=== PATIENT | female | born 1950 | race Caucasian/White ===

== ENCOUNTER 2016-12-15 08:33 | Day surgery (SDC) | payer MEDICARE, BC ==
[2016-12-15] MEDS: Sodium Tetradecyl Sulfate 1% 20 MG/2 ML SDV ONE ×2 (08:21→10:21)
[2016-12-15] MEDS: Lidocaine 1% 20 ML MDV ONE ×2 (08:22→10:00)
[~2016-12-15 08:33] MED LIST: Lidocaine 1% 20 ML MDV ONE; Midazolam 1 MG/ML 2 ML SDV ONE; Propofol 200 MG/20 ML SDV ONE; Sodium Chloride 0.9% 10 ML ONE; fentaNYL 100 MCG/2 ML SDV ONE
[2016-12-15] MEDS ORDERED: Sodium Chloride 0.9% 1,000 ML IV SCH (09:15)
[2016-12-15] MEDS ORDERED: Lidocaine 1% w/EPINEPHrine 50 ML, Sodium Bicarbonate 5 MEQ in Sodium Chloride 0.9% 950 ML INJECT SCH ×6 (09:45)
[2016-12-15] MEDS ORDERED: Propofol 200 MG/20 ML SDV ONE (10:18)
[2016-12-15 11:39] VITALS: BP 132/66
--- NOTE | 2016-12-15 11:43 | OR ---
DATE OF PROCEDURE: 12/15/2016 PROCEDURE: 1. Radiofrequency ablation of left lesser saphenous vein. 2. Radiofrequency ablation of right lesser saphenous vein. 3. Sclerotherapy, left leg, multiple. 4. Sclerotherapy, right leg, multiple. 5. Compression wraps, left leg ([id number]). 6. Compression wraps, right leg ([id number]). COMPLICATIONS: None. SECOND LANGUAGE TUTOR: None. ANESTHESIA: Mac/local. PREOPERATIVE DIAGNOSIS: Venous/varicose vein insufficiency with inflammation and pain. POSTOPERATIVE DIAGNOSIS: Venous/varicose vein insufficiency with inflammation and pain. RISKS: Risks, benefits, alternatives, limitations including, but not limited to infection, bleeding, and perforation were explained to the patient, and she wished to proceed. PROCEDURE IN DETAIL: The patient was placed in prone position. The right LSV was addressed first. This was accessed via 35,000th wire, then exchanged to a 7-Bangladeshi sheath all via a 21-gauge needle. The probe was advanced to greater than 3 cm from the deep junction. This was injected with tumescent fluid around this and verified a second and third time. Direct even pressure was deployed x2 proximally and x1 in all other segments. The sheath and device removed and direct pressure was held for 10 minutes. Dermabond was applied. The same procedure was performed in the left leg, same manner, same fashion, same technique in the same sequence using the same equipment. Sclerotherapy was then performed in left and right legs using 0.33% sodium tetradecyl. This was drawn back to ensure intravascular injection only. No more than 2 mL was injected in one location. Seven on the right, 8 on the left with length of 1 to 6 cm. Compression wrapping using CoFlex 2 system in two layers was performed in standard fashion. The patient tolerated the procedure well. Vance Gastelum MD /[id number]
== END 2016-12-15 12:05 | disposition home or self-care (01) ==
LOC: JP.SDS 08:33
PROVIDERS: ATTEND Surgery
DX: I87.2 Venous insufficiency (chronic) (peripheral) (principal); I83.11 Varicose veins of right lower extremity with inflammation; I83.12 Varicose veins of left lower extremity with inflammation; I83.813 Varicose veins of bilateral lower extremities with pain; I10 Essential (primary) hypertension
CPT/HCPCS: 29581; 36471; 36475; C1888; J1642; J2250; J2704; J3010; J7040; J7050

== ENCOUNTER 2016-12-18 10:19 | Emergency (ER) | payer MEDICARE, BC ==
[2016-12-18] MEDS ORDERED: Albuterol/Ipratropium 3.0-0.5 MG/3 ML Neb Soln NEB ONE (11:39)
[2016-12-18] MEDS ORDERED: Sodium Chloride 0.9% 1,000 ML IV SCH (12:15)
[2016-12-18] MEDS ORDERED: Iopamidol 755 Mg/ML 100 ML Bottle IV STA (12:21)
[2016-12-18] MEDS ORDERED: Sodium Chloride 0.9% 100 ML IV STA (12:21)
[2016-12-18 13:14] VITALS: BP 156/83
--- NOTE | 2016-12-18 14:33 | EDM.PDOC ---
ED HPI GENERAL MEDICAL PROBLEM - General Chief Complaint: Respiratory Problem Stated Complaint: SOB Time Seen by Provider: 12/18/16 10:54 Source of Information: Reports: Patient History Limitations: Reports: No Limitations - History of Present Illness INITIAL COMMENTS - FREE TEXT/NARRATIVE: History of present illness: [66-year-old female enters in [place] is here with a productive cough of yellow sputum and shortness of breath. She's actually been not well since last January when she had pneumonia. She's improved but she's never really returned to baseline and now she feels she is getting worse again. She's worried that she has "valley fever" from living in [place]. This is coccidiomycosis. She did have a long CT which showed some granulomas. This was done in October. She's had no overt fevers chills although last night subjectively she felt like she was chilling and needed extra blankets. She's never been on any inhalers before told that she's had COPD or asthma. Is a nonsmoker no history of blood clots no history of coronary artery disease.] Review of systems: As per history of present illness and below otherwise all systems reviewed and negative. Past medical history: As per history of present illness and as reviewed below otherwise noncontributory. Surgical history: As per history of present illness and as reviewed below otherwise noncontributory. Social history: No reported history of drug or alcohol abuse. Family history: As per history of present illness and as reviewed below otherwise noncontributory. Physical exam: HEENT: Atraumatic, normocephalic, pupils reactive, negative for conjunctival pallor or scleral icterus, mucous membranes moist, throat clear, neck supple, nontender, trachea midline. Lungs: Show diminished breath sounds throughout with wheezing which cleared with a DuoNeb treatment Heart: S1S2, regular, negative for clicks, rubs, or JVD. Abdomen: Soft, nondistended, nontender. Negative for masses or hepatosplenomegaly. Negative for costovertebral tenderness. Pelvis: Stable nontender. Genitourinary: Deferred. Rectal: Deferred. Extremities: Atraumatic, negative for cords or calf pain. Neurovascular unremarkable. Neuro: Awake, alert, oriented. Cranial nerves II through XII unremarkable. Cerebellum unremarkable. Motor and sensory unremarkable throughout. Exam nonfocal. Diagnostics: [Her d-dimer was elevated and so we did do a chest CT which ruled out pulmonary embolus but the other pulmonary findings seen on the prior CT were seen once again and are unchanged. Her white count is normal but other inflammatory markers such as sedimentation rate and CRP are elevated. I asked the lab to send serum for checking for coccidiomycosis and to my understanding is that this was done. I presume this is a send out to [facility]. Chest x-ray did not show any overt infiltrates.] Therapeutics: [She received a DuoNeb therapy and felt much better after this] Impression: [Asthmatic bronchitis rule out coccidiomycosis] Plan: [I'm going to provide her with Levaquin 750 mg 1 by mouth daily for [address] her on an albuterol inhaler 2-3 puffs every 4 hours when necessary cough or shortness of breath. I've urged her to follow-up with her primary care doctor who can follow-up on the coccidiomycosis testing to should have been sent to [facility]. She has CT findings as well that we'll need follow-up on as per Fleischner criteria. If albuterol inhaler is not working well for her she may need to be on some long-acting beta agonists or perhaps steroid inhalers but that this can be left up to her primary.] Definitive disposition and diagnosis as appropriate pending reevaluation and review of above. Headache Pain Score (Numeric/FACES): 5 - Related Data Allergies Allergy/AdvReac Type Severity Reaction Status Date / Time No Known Allergies Allergy Verified 12/18/16 10:36 Home Meds: Home Meds Propranolol [Inderal] 40 mg PO DAILY 03/20/15 [History] Past Medical History Other Cardiovascular History: Essential Tremors - takes beta farzana for this. Respiratory History: Reports: SOB Other Respiratory History: coughtin [employer] History: Reports: - Infectious Disease History Infectious Disease History: Reports: Chicken Pox, Measles, Mumps - Past Surgical History GI Surgical History: Reports: Colonoscopy Social & Family History - Family History Family Medical History: Noncontributory - Tobacco Use Smoking Status *Q: Never Smoker Second Hand Smoke Exposure: No - Caffeine Use Caffeine Use: Reports: Tea - Alcohol Use Days Per Week of Alcohol Use: 0 - Recreational Drug Use Recreational Drug Use: No ED ROS GENERAL - Review of Systems Review Of Systems: ROS reveals no pertinent complaints other than HPI. ED EXAM, GENERAL - Physical Exam Exam: See Below Course - Vital Signs Last Recorded V/S: Last Vital Signs Temp 37.1 C 12/18/16 10:33 Pulse 85 12/18/16 13:13 Resp 16 12/18/16 13:13 BP 156/83 H 12/18/16 13:13 Pulse Ox 95 12/18/16 13:13 - Orders/Labs/Meds Orders: Active Orders 24 hr Category Date Time Status EKG Documentation Completion [RC] ASDIRECTED Care 12/18/16 11:04 Active RT Aerosol Therapy [RC] ASDIRECTED Care 12/18/16 11:40 Active Ang Chest [CT] Stat Exams 12/18/16 12:10 Taken Chest 2V [CR] Stat Exams 12/18/16 11:03 Taken COCCIDIODES ANTIBODY BY ID [REF] Routine Lab 12/18/16 11:26 Received CULTURE RESPIRATORY + SMEAR [RM] Stat Lab 12/18/16 11:55 Results Sodium Chloride 0.9% [Normal Saline] 1,000 ml Med 12/18/16 12:15 Active IV ASDIRECTED EKG 12 Lead [EK] Stat Ther 12/18/16 11:03 Ordered Medication Orders Sodium Chloride (Normal Saline) 1,000 mls @ 250 mls/hr IV ASDIRECTED LUPILLO Last Admin: 12/18/16 12:59 Dose: 250 mls/hr Labs: Laboratory Tests 12/18/16 12/18/16 12/18/16 Range/Units 11:25 11:25 11:25 WBC 7.5 (4.5-11.0) K/uL RBC 4.60 (3.30-5.50) M/uL Hgb 13.3 (12.0-15.0) g/dL Hct 40.7 (36.0-48.0) % MCV 89 (80-98) fL MCH 29 (27-31) pg MCHC 33 (32-36) % Plt Count 275 (150-400) K/uL Neut % (Auto) 52 (36-66) % Lymph % (Auto) 20 L (24-44) % [place] % (Auto) 18 H (2-6) % Eos % (Auto) 7 H (2-4) % Baso % (Auto) 3 H (0-1) % ESR 43 H (0-25) mm/hr D-Dimer, Quantitative 513 H (0.0-400.0) ng/mL ABG Hemoglobin 13.6 (12.0-16.0) g/dL ABG Oxyhemoglobin 40.4 % ABG Carboxyhemoglobin 1.4 (0.0-1.6) % ABG Methemoglobin 0.6 % VBG pH 7.407 (7.350-7.450) VBG pCO2 45.8 mm/Hg VBG pO2 25.3 mm/Hg VBG HCO3 28.2 mmol/L VBG Total CO2 25.4 mmol/L VBG O2 Saturation 41.2 VBG O2 Content 7.7 %vol VBG Base Excess 3.4 mm/L O2 Delivery Device Room air Sodium (140-148) mmol/L Potassium (3.6-5.2) mmol/L Chloride (100-108) mmol/L Carbon Dioxide (21-32) mmol/L Anion Gap (5.0-14.0) mmol/L BUN (7-18) mg/dL Creatinine (0.6-1.0) mg/dL Est Cr Clr Drug Dosing mL/min Estimated GFR (MDRD) (>60) Glucose (74-106) mg/dL Lactic Acid (0.4-2.0) mmol/L Calcium (8.5-10.1) mg/dL Total Bilirubin (0.2-1.0) mg/dL AST (15-37) U/L ALT (12-78) U/L Alkaline Phosphatase (46-116) U/L Troponin I (0.000-0.056) ng/mL C-Reactive Protein (0.0-0.3) mg/dL [id number] Pept (5-125) pg/mL Total Protein (6.4-8.2) g/dL Albumin (3.4-5.0) g/dL Globulin (2.3-3.5) g/dL Albumin/Globulin Ratio (1.2-2.2) 12/18/16 12/18/16 Range/Units 11:25 11:25 WBC (4.5-11.0) K/uL RBC (3.30-5.50) M/uL Hgb (12.0-15.0) g/dL Hct (36.0-48.0) % MCV (80-98) fL MCH (27-31) pg MCHC (32-36) % Plt Count (150-400) K/uL Neut % (Auto) (36-66) % Lymph % (Auto) (24-44) % [place]ima % (Auto) (2-6) % Eos % (Auto) (2-4) % Baso % (Auto) (0-1) % ESR (0-25) mm/hr D-Dimer, Quantitative (0.0-400.0) ng/mL ABG Hemoglobin (12.0-16.0) g/dL ABG Oxyhemoglobin % ABG Carboxyhemoglobin (0.0-1.6) % ABG Methemoglobin % VBG pH (7.350-7.450) VBG pCO2 mm/Hg VBG pO2 mm/Hg VBG HCO3 mmol/L VBG Total CO2 mmol/L VBG O2 Saturation VBG O2 Content %vol VBG Base Excess mm/L O2 Delivery Device Sodium 143 (140-148) mmol/L Potassium 4.2 (3.6-5.2) mmol/L Chloride 106 (100-108) mmol/L Carbon Dioxide 30 (21-32) mmol/L Anion Gap 7.4 (5.0-14.0) mmol/L BUN 9 (7-18) mg/dL Creatinine 0.8 (0.6-1.0) mg/dL Est Cr Clr Drug Dosing 58.93 mL/min Estimated GFR (MDRD) > 60 (>60) Glucose 100 (74-106) mg/dL Lactic Acid 0.9 (0.4-2.0) mmol/L Calcium 8.7 (8.5-10.1) mg/dL Total Bilirubin 0.4 (0.2-1.0) mg/dL AST 19 (15-37) U/L ALT 22 (12-78) U/L Alkaline Phosphatase 112 (46-116) U/L Troponin I < 0.017 (0.000-0.056) ng/mL C-Reactive Protein 1.48 H (0.0-0.3) mg/dL [id number] Pept 282 H (5-125) pg/mL Total Protein 7.9 (6.4-8.2) g/dL Albumin 3.3 L (3.4-5.0) g/dL Globulin 4.6 H (2.3-3.5) g/dL Albumin/Globulin Ratio 0.7 L (1.2-2.2) Meds: Medications Generic Name Dose Route Start Last Admin Trade Name Alfred PRN Reason Stop Dose Admin Sodium Chloride 1,000 mls @ 250 mls/hr 12/18/16 12:15 12/18/16 12:59 Normal Saline IV 250 mls/hr ASDIRECTED LUPILLO Administration Discontinued Medications Generic Name Dose Route Start Last Admin Trade Name Alfred PRN Reason Stop Dose Admin Albuterol/Ipratropium 3 ml 12/18/16 11:39 12/18/16 11:47 Duoneb 3.0-0.5 Mg/3 Ml NEB 12/18/16 11:40 3 ml ONETIME ONE Administration Sodium Chloride 100 mls @ 4 mls/sec 12/18/16 12:21 12/18/16 12:32 Normal Saline IV 12/18/16 12:22 4 mls/sec ASDIRECTED STA Administration Iopamidol 100 ml 12/18/16 12:21 12/18/16 12:32 Isovue-370 (76%) IV 12/18/16 12:22 100 ml . DIRECTED STA Administration Departure - Departure Time of Disposition: 14:33 Disposition: Home, Self-Care 01 Condition: Good Clinical Impression: Acute bronchiolitis Qualifiers: Bronchiolitis organism: unspecified organism Qualified Code(s): J21.9 - Acute bronchiolitis, unspecified - Discharge Information Forms: ED Department Discharge Additional Instructions: As per our discussion please make an appointment to follow-up with your primary care provider and she can follow up on the test the placenta male. If your inhaler is helping you saw him but you're still having trouble with shortness of breath it could be that we could add another inhaler 2 your current regime. All fluid the antibiotics will also be helpful in clearing this infection. If you end up having coccidiomycosis there is a treatment for this but it could be an infectious disease specialist would be consulted in determining what best course to pursue. - My Orders Last 24 Hours: My Active Orders 12/18/16 11:03 Chest 2V [CR] Stat EKG 12 Lead [EK] Stat 12/18/16 11:04 EKG Documentation Completion [RC] ASDIRECTED 12/18/16 11:26 COCCIDIODES ANTIBODY BY ID [REF] Routine 12/18/16 11:40 RT Aerosol Therapy [RC] ASDIRECTED 12/18/16 11:55 CULTURE RESPIRATORY + SMEAR [RM] Stat 12/18/16 12:10 Ang Chest [CT] Stat 12/18/16 12:15 Sodium Chloride 0.9% [Normal Saline] 1,000 ml IV ASDIRECTED - Assessment/Plan Last 24 Hours: My Active Orders 12/18/16 11:03 Chest 2V [CR] Stat EKG 12 Lead [EK] Stat 12/18/16 11:04 EKG Documentation Completion [RC] ASDIRECTED 12/18/16 11:26 COCCIDIODES ANTIBODY BY ID [REF] Routine 12/18/16 11:40 RT Aerosol Therapy [RC] ASDIRECTED 12/18/16 11:55 CULTURE RESPIRATORY + SMEAR [RM] Stat 12/18/16 12:10 Ang Chest [CT] Stat 12/18/16 12:15 Sodium Chloride 0.9% [Normal Saline] 1,000 ml IV ASDIRECTED
--- NOTE | 2016-12-19 13:24 | CR ---
Chest 2V INDICATION: prod cough FINDINGS: Comparison 10/13/2016. Stable benign calcified granuloma right midlung. Chest otherwise unre markable.
== END 2016-12-18 14:55 | disposition home or self-care (01) ==
LOC: JP.ED 10:19
DX: J45.909 Unspecified asthma, uncomplicated (principal); J21.9 Acute bronchiolitis, unspecified; Z79.899 Other long term (current) drug therapy
CPT/HCPCS: 36415; 71020; 71275; 80053; 82803; 83605; 83880; 84484; 85025; 85379; 85651; 86140; 87070; 87205; 87804; 93005; 99284; J7030; J7040; J7620; Q9967; 86635; 93010